=== PATIENT | female | born 1945 | race Caucasian/White ===

== ENCOUNTER 2022-04-05 20:07 | Emergency (ER) | payer MEDICARE, OTHER ==
[~2022-04-05] VITALS: Ht 154.9 cm; Wt 54.4 kg
[2022-04-05 20:18] VITALS: BP 160/97
--- NOTE | 2022-04-05 20:24 | NUR ---
TO LOBBY FOLLOWING TRIAGE
--- NOTE | 2022-04-05 21:19 | NUR ---
PT TO 6
--- NOTE | 2022-04-05 22:10 | NUR ---
Patient being evaluated by physician at bedside.
[2022-04-05] MEDS ORDERED: DOXY100T9 PO (22:20)
[2022-04-05] MEDS ORDERED: DOXYCYCLINE 100 MG CAP PO STA (22:23)
[2022-04-05] MEDS ORDERED: DOXYCYCLINE 100 MG CAP ONE (22:27)
[2022-04-05 22:49] VITALS: BP 146/67
--- NOTE | 2022-04-05 22:52 | NUR ---
Patient discharged with v/s stable. Written and verbal after care instructions given and explained. Patient alert, oriented and verbalized understanding of instructions. Ambulatory with steady gait. All questions addressed prior to discharge. ID band removed. Patient advised to follow up with PMD. Rx of DOXYCYCLINE HYCLATE given. Patient educated on indication of medication including possible reaction and side effects. Opportunity to ask questions provided and answered.
== END 2022-04-05 22:45 | disposition home or self-care (01) ==
LOC: EDBD 20:07 → MED 20:07
DX: S50.862A Insect bite (nonvenomous) of left forearm, initial encounter (principal); W57.XXXA Bitten or stung by nonvenomous insect and other nonvenomous arthropods, initial encounter; Y93.89 Activity, other specified; Y92.89 Other specified places as the place of occurrence of the external cause; Y99.8 Other external cause status
CPT/HCPCS: 99283